=== PATIENT | male | born 1950 | race Hispanic/Latino ===

== ENCOUNTER 2017-06-16 11:26 | Day surgery (SDC) | payer MEDICARE, BC ==
[2017-06-16] MEDS ORDERED: Lidocaine 1% Inj (20ml) ONE (12:11)
[2017-06-16 12:18] VITALS: O2SAT 99
[2017-06-16 14:19] VITALS: BP 118/68; PULSE 62; RESP 18; TEMP 98
--- NOTE | 2017-06-16 23:49 | CP.PCM.HP ---
History of Present Illness - History of Present Illness History of Present Illness: pt. with cold agglutinnin hemolytic anemia. Recent blood work showed M protein at 0.5 gm/dl. he has low grade hemolysis for past 3 years. Mild hyperbilurubinemia. he was admitted for bone marrow aspiration, biopsy. Present on Admission - Present on Admission Any Indicators Present on Admission: No Review of Systems - Constitutional Constitutional: As Per HPI - EENT Eyes: absent: As Per HPI, Blind Spots, Blurred Vision, Change in Vision, Decreased Night Vision, Diplopia, Discharge, Dry Eye, Exophthalmos, Floaters, Irritation, Itchy Eyes, Loss of Peripheral Vision, Pain, Photophobia, Requires Corrective Lenses, Sees Flashes, Spots in Vision, Tunnel Vision, Other Visual Disturbances, Loss of Vision, Other - Cardiovascular Cardiovascular: absent: As Per HPI, Acrocyanosis, Chest Pain, Chest Pain at Rest , Chest Pain with Activity, Claudication, Diaphoresis, Dyspnea, Dyspnea on Exertion, Edema, Irregular Heart Rhythm, Pain Radiating to Arm/Neck/Jaw, Leg Edema, Leg Ulcers, Lightheadedness, Orthopnea, Palpitations, Paroxysmal Nocturnal Dyspnea, Pedal Edema, Radiating Pain, Rapid Heart Rate, Slow Heart Rate, Syncope, Other - Respiratory Respiratory: absent: As Per HPI, Cough, Dyspnea, Hemoptysis, Dyspnea on Exertion , Wheezing, Snoring, Stridor, Pain on Inspiration, Chest Congestion, Excessive Mucous Production, Change in Mucous Color, Pain with Coughing, Other - Gastrointestinal Gastrointestinal: absent: As Per HPI, Abdominal Pain, Belching, Bloating, Change in Bowel Habits, Change in Stool Character, Coffee Ground Emesis, Constipation, Cramping, Diarrhea, Dyspepsia, Dysphagia, Early Satiety, Excessive Flatus, Fecal Incontinence, Heartburn, Hematemesis, Hematochezia, Loose Stools, Melena, Nausea, Odynophagia, Temesmus, Vomiting, Other - Genitourinary Genitourinary: absent: As Per HPI, Change in Urinary Stream, Difficulty Urinating, Dysuria, Flank Pain, Hematuria, Pyuria, Nocturia, Urinary Incontinence, Urinary Frequency, Urinary Hesitance, Urinary Urgency, Voiding Freq/Small Amts, Freq UTI, Hx Renal/Bladder Calculi, Hx /Renal Surgery, Bladder Distension, Other - Musculoskeletal Musculoskeletal: absent: As Per HPI, Abnormal Gait, Arthralgias, Atrophy, Back Pain, Deformity, Joint Swelling, Limited Range of Motion, Loss of Height, Muscle Cramps, Muscle Weakness, Myalgias, Neck Pain, Numbness, Radiating Pain into Limb, Stiffness, Tingling, Other - Integumentary Integumentary: absent: As Per HPI, Acne, Alopecia, Bleeding Lesions, Change in Hair, Change in Nails, Change in Pigmentation, Changing Lesions, Dry Skin, Erythema, Furuncle, Hirsutism, Lesions, New Lesions, Non-Healing Lesions, Photosensitivity, Pruritus, Rash, Skin Pain, Skin Ulcer, Sores, Striae, Swelling , Unusual Bruising, Wounds, Jaundice, Other - Neurological Neurological: absent: As Per HPI, Abnormal Gait, Abnormal Hearing, Abnormal Movements, Abnormal Speech, Behavioral Changes, Burning Sensations, Confusion, Convulsions, Disequilibrium, Dizziness, Numbness, Focal Weakness, Frequent Falls , Headaches, Lack of Coordination, Loss of Vision, Memory Loss, Paresthesias, Radicular Pain, Restless Legs, Sensory Deficit, Syncope, Tingling, Tremor, Vertigo, Weakness, Other Visual Disturbances, Other - Psychiatric Psychiatric: absent: As Per HPI, Abnormal Sleep Pattern, Anhedonia, Anxiety, Auditory Hallucinations, Behavioral Changes, Change in Appetite, Change in Libido, Confusion, Depression, Difficulty Concentrating, Hallucinations, Homicidal Ideation, Hopelessness, Irritability, Memory Loss, Mood Swings, Panic Attacks, Paranoia, Suicidal Ideation, Visual Hallucinations, Tactile Hallucinations, Other - Endocrine Endocrine: absent: As Per HPI, Change in Body Appearance, Change in Libido, Cold Intolorance, Deepening of Voice, Excessive Sweating, Fatigue, Flushing, Heat Intolorance, Increase in Ring/Shoe/Hat Size, Palpitations, Polydipsia, Polyphagia, Polyuria, Other - Hematologic/Lymphatic Hematologic: As Per HPI Past Patient History - Past Medical History & Family History Past Medical History?: Yes Past Family History: Reviewed and not pertinent - HEMATOLOGICAL/ONCOLOGICAL Hx Blood Transfusions: No - SURGICAL HISTORY Hx Surgeries: No - ANESTHESIA Hx Anesthesia Reactions: No Hx Malignant Hyperthermia: No Meds Allergies/Adverse Reactions: Allergies Allergy/AdvReac Type Severity Reaction Status Date / Time No Known Allergies Allergy Verified 11/13/14 09:08 Physical Exam - Constitutional Appears: Well - Head Exam Head Exam: ATRAUMATIC, NORMAL INSPECTION - Eye Exam Eye Exam: Normal appearance - ENT Exam ENT Exam: Mucous Membranes Moist - Respiratory Exam Respiratory Exam: Clear to Auscultation Bilateral, NORMAL BREATHING PATTERN - Cardiovascular Exam Cardiovascular Exam: REGULAR RHYTHM, +S1, +S2 - GI/Abdominal Exam GI & Abdominal Exam: Normal Bowel Sounds - Extremities Exam Extremities exam: Positive for: normal inspection - Back Exam Back exam: NORMAL INSPECTION - Neurological Exam Neurological exam: CN II-XII Intact, Normal Gait, Oriented x3 - Skin Skin Exam: Normal Color Results - Vital Signs Recent Vital Signs: Last Vital Signs Temp 98 F 06/16/17 14:15 Pulse 62 06/16/17 14:15 Resp 18 06/16/17 14:15 BP 118/68 06/16/17 14:15 Pulse Ox 99 06/16/17 12:13 Assessment & Plan - Assessment and Plan (Free Text) Assessment: 1. hemolytic anemia : stable Hb/Hct. 2. MGUS : bone marrow aspiration , biospy to r/o multiple myeloma, NHL. 3. Cold agglutinnin hemolytic anemia : might be associated with NHL, Plasma cell disorders. 4. Bone marrow aspiration, biopsy done today. - Date & Time Date: 06/16/17 Time: 14:00
--- NOTE | 2017-06-16 23:59 | PCM.OP ---
Operative Report - Operative Report Date of Surgery/Procedure: 06/16/17 Time of Surgery/Procedure: 13:00 Surgeon: Dr. Bland Anesthesia/Sedation: Lidocaine 1 % Pre-Operative Diagnosis: MGUS, hemolytic anemia Post-Operative Diagnosis: MGUS Indication for Surgery: MGUS Operative Findings: none Procedure/Operation Description: patient laid in right lateral position. Cleaning , drapping done. Under all aspetic conditions, bone marrow aspirate sample obtained from right illiac crest. 10 slides made bedside. samples sent for histo path. Bone marrow biospy samples obtained from a saparate bone marrow puncture site. 0.8 cm of good biopsy specimen obtained. patient tolerated procedure well. No pain, bleeding. No complications. Estimated Blood Loss: none. Blood Replaced: none Sponge/Instrument Count: n/a Drains: none Complications: none Specimen: sent to lab Discharge & Condition: stable.
== END 2017-06-16 14:18 | disposition home or self-care (01) ==
LOC: OPSURG 11:26
PROVIDERS: ATTEND Internal Medicine Medical Oncology
DX: D47.2 Monoclonal gammopathy (principal); D59.1 Other autoimmune hemolytic anemias

== ENCOUNTER 2018-07-18 07:22 | Day surgery (SDC) | payer MEDICARE, BC ==
[2018-07-18 07:57] VITALS: TEMP 97.8
[2018-07-18] MEDS ORDERED: Propofol 10 mg/ml Inj (20 ML) ONE ×2 (09:28→09:55)
[2018-07-18] MEDS ORDERED: Lactated Ringer's 1,000 ML IV SCH (10:15)
[2018-07-18 10:57] VITALS: RESP 16
[2018-07-18 11:23] VITALS: PULSE 62; O2SAT 99
[2018-07-18 11:24] VITALS: BP 156/92
== END 2018-07-18 11:35 | disposition home or self-care (01) ==
LOC: ENDO 07:22
PROVIDERS: ATTEND Internal Medicine Gastroenterology
DX: K62.5 Hemorrhage of anus and rectum (principal); K64.8 Other hemorrhoids; Q43.8 Other specified congenital malformations of intestine; Z80.0 Family history of malignant neoplasm of digestive organs
CPT/HCPCS: 45378; J2001; J2704; J7040; J7120

== ENCOUNTER 2018-11-15 10:46 | Outpatient (CLI) | payer MEDICARE, BC | END 2018-11-15 10:47 | disposition home or self-care (01) | LOC: LAB 10:46 ==

== ENCOUNTER → 2018-12-14 | Outpatient (CLI) | payer MEDICARE, BC | LOC: LAB 10:35 ==